=== PATIENT | male | born 1990 | race Asian ===

== ENCOUNTER 2019-02-04 19:28 | Emergency (ER) | payer OTHER ==
[~2019-02-04] VITALS: Ht 165.1 cm; Wt 81.8 kg
[2019-02-04] MEDS ORDERED: METHOCARBAMOL 500 MG TABLET PO ONE (21:15)
[2019-02-04] MEDS ORDERED: IBUPROFEN 600 MG TABLET PO ONE (21:15)
[2019-02-04] MEDS ORDERED: LIDOCAINE 5% TRANSDERMAL PATCH TD ONE (21:15)
[2019-02-04 22:17] VITALS: BP 118/71
== END 2019-02-04 22:14 | disposition home or self-care (01) ==
LOC: EMS 19:33
DX: M54.5 Low back pain (principal); R03.0 Elevated blood-pressure reading, without diagnosis of hypertension; V49.9XXA Car occupant (driver) (passenger) injured in unspecified traffic accident, initial encounter; Y93.89 Activity, other specified; Y92.488 Other paved roadways as the place of occurrence of the external cause; Y99.8 Other external cause status
CPT/HCPCS: 72100